=== PATIENT | male | born 1980 | race Caucasian/White ===

== ENCOUNTER 2018-07-15 08:40 | Emergency (ER) | payer MEDICAID | END 2018-07-15 10:43 | disposition home or self-care (01) | LOC: FTE 08:40 | DX: S89.92XA Unspecified injury of left lower leg, initial encounter (principal); W18.30XA Fall on same level, unspecified, initial encounter; Y92.9 Unspecified place or not applicable | CPT/HCPCS: 73562; 99283-25 ==